=== PATIENT | female | born 1965 | race Caucasian/White ===

== ENCOUNTER 2019-02-09 15:32 | Emergency (ER) | payer BC ==
--- NOTE | 2019-02-09 15:43 | EDM.PDOC ---
ED HPI GENERAL MEDICAL PROBLEM - General Stated Complaint: WOUND BLEEDING Time Seen by Provider: 02/09/19 15:32 Source of Information: Reports: Patient, Family History Limitations: Reports: No Limitations - History of Present Illness INITIAL COMMENTS - FREE TEXT/NARRATIVE: 53 y.o.w.f with ESRD came with her family to the ed after a procedure, done at [facility] in order to open up the AV shunt at her left arm, which may be used for Hemodialysis. The procedure was not successful. Pt came to the ED because the wound was bleeding. There was no active bleed. Pt denies any other symptosm like SOB, CP, no N/V/D no dizziness. BP 102/76 Pulse 82 Temp 36.8 RR 18 Pulse ox 100% (vitals checked on D/C!) Onset Date: 02/09/19 Onset Time: 15:10 Duration: Hour(s): Location: Reports: Upper Extremity, Left Quality: Reports: Dull Severity: Moderate Improves with: Reports: Rest Worsens with: Reports: Movement Context: Reports: Trauma (AV shunt) Associated Symptoms: Reports: No Other Symptoms - Related Data Allergies Allergy/AdvReac Type Severity Reaction Status Date / Time fentanyl Allergy Other Verified 02/09/19 16:50 Sulfa (Sulfonamide Allergy Other Verified 02/09/19 16:50 Antibiotics) ED ROS GENERAL - Review of Systems Review Of Systems: See Below Constitutional: Reports: No Symptoms HEENT: Reports: No Symptoms Respiratory: Reports: No Symptoms Cardiovascular: Reports: No Symptoms Endocrine: Reports: No Symptoms GI/Abdominal: Reports: No Symptoms : Reports: No Symptoms Musculoskeletal: Reports: No Symptoms Skin: Reports: Wound (left upper arm S/P surgical procedure. ) Neurological: Reports: No Symptoms Psychiatric: Reports: No Symptoms Hematologic/Lymphatic: Reports: No Symptoms Immunologic: Reports: No Symptoms ED EXAM, SKIN/RASH Exam: See Below Exam Limited By: No Limitations General Appearance: Alert, WD/WN, Mild Distress Eye Exam: Bilateral Eye: Nystagmus Ears: Normal External Exam Nose: Normal Inspection Throat/Mouth: Normal Lips, Normal Voice, No Airway Compromise Head: Atraumatic, Normocephalic Neck: Normal Inspection, Supple, Non-Tender Respiratory/Chest: No Respiratory Distress, Lungs Clear Cardiovascular: Normal Peripheral Pulses, Regular Rate, Rhythm, No Edema Peripheral Pulses: 1+: Brachial (L) GI/Abdominal: Normal Bowel Sounds, Soft, Non-Tender, No Organomegaly, No Abnormal Bruit (Female) Exam: Deferred Rectal (Female) Exam: Deferred Back Exam: Normal Inspection, Full Range of Motion Extremities: Normal Range of Motion, No Pedal Edema, Normal Capillary Refill Neurological: Alert, Oriented, CN II-XII Intact, Normal Cognition, Normal Gait Psychiatric: Normal Affect, Normal Mood Skin: Warm, Dry, Other (bleding punctured wound left upper arm) Location, Skin: Upper Extremity, Left Associated features: Warmth Lymphatic: No Adenopathy Course - Vital Signs Text/Narrative:: 53 y.o.w.f with ESRD came with her family to the ed after a procedure, done at [facility] in order to open up the AV shunt at her left arm, which may be used for Hemodialysis. The procedure was not successful. Pt came to the ED because the wound was bleeding. There was no active bleed. Pt denies any other symptosm like SOB, CP, no N/V/D no dizziness. BP 102/76 Pulse 82 Temp 36.8 RR 18 Pulse ox 100% (vitals checked on D/C! by MD) PE: WNWD W F with a H./O Low BP Labs/Imaging: Jl this am at [facility] Impression: Bleeding from AV shunt left arm, H/O Hypotension Tx: Wound care 3.42 pm Consultation:Dr. Padilla,CV surgeon, [facility]: Apply pressure, wound care, F/u with surgeon Reexam: Pt was ambulating fine, no dizziness/lightheadedness no SOB Plan: D/C with instructions Departure - Departure Time of Disposition: 16:33 Disposition: Home, Self-Care 01 Condition: Good Clinical Impression: Encounter for wound care - Discharge Information Referrals: Marielle Gomes MD [Primary Care Provider] - Additional Instructions: Please f/u with your PMD wound care, please see your surgeon for for shunt placement, please come back if your symptoms get worse acutely
== END 2019-02-09 17:15 | disposition home or self-care (01) ==
LOC: FB.ED 15:32
DX: T82.838A Hemorrhage due to vascular prosthetic devices, implants and grafts, initial encounter (principal); N18.6 End stage renal disease; Z88.5 Allergy status to narcotic agent; Z88.2 Allergy status to sulfonamides
CPT/HCPCS: 99283

== ENCOUNTER 2019-05-27 17:54 | Emergency (ER) | payer BC ==
[2019-05-27] MEDS ORDERED: Sodium Chloride 0.9% 1,000 ML IV ONE (18:00)
[2019-05-27] MEDS ORDERED: Sodium Chloride 0.9% 10 ML Syringe FLUSH PRN (18:00)
[2019-05-27] MEDS ORDERED: Norepinephrine 4 MG in Dextrose 5% in Water 246 ML IV SCH ×2 (18:30)
--- NOTE | 2019-05-27 18:42 | EDM.PDOC ---
ED HPI GENERAL MEDICAL PROBLEM - General Chief Complaint: Syncope Stated Complaint: PASSED OUT Time Seen by Provider: 05/27/19 18:37 Source of Information: Reports: Patient, EMS History Limitations: Reports: No Limitations - History of Present Illness INITIAL COMMENTS - FREE TEXT/NARRATIVE: Patient had a witnessed syncopal episode [employer]. She is s/p LUE AV fistula placement, tunneled dialysis catheter placement, and removal of peritoneal catheter today at [facility]. Patient complains of lightheadedness and nausea. Denies chest pain or shortness of breath. Per Dr. Gomes (PMD), patient's BP is normally low, and SBP 70 is not uncommon. Onset: Today Duration: Hour(s): (1) - Related Data Allergies Allergy/AdvReac Type Severity Reaction Status Date / Time fentanyl Allergy Other Verified 05/27/19 18:53 Sulfa (Sulfonamide Allergy Other Verified 05/27/19 18:53 Antibiotics) Past Medical History HEENT History: Reports: Impaired Vision Cardiovascular History: Reports: Heart Murmur, [place], Other (See Below) Other Cardiovascular History: hypotension, tachycardia, SVT Genitourinary History: Reports: Chronic Renal Insuffiency, Dialysis, Dialysis, Peritoneal Endocrine/Metabolic History: Reports: Diabetes, Type II, Obesity/BMI 30+ - Past Surgical History HEENT Surgical History: Reports: Oral Surgery Cardiovascular Surgical History: Reports: Other (See Below) Other Cardiovascular Surgeries/Procedures: ablation GI Surgical History: Reports: Bariatric Procedure Social & Family History - Family History Family Medical History: Noncontributory - Caffeine Use Caffeine Use: Reports: None Caffeine Use Comment: Pt used caffeine in the past, not so much anymore - Alcohol Use Alcohol Use History: No ED ROS GENERAL - Review of Systems Review Of Systems: Comprehensive ROS is negative, except as noted in HPI. - Physical Exam Exam: See Below Exam Limited By: No Limitations General Appearance: Alert, WD/WN, No Apparent Distress Eye Exam: Bilateral Eye: EOMI, PERRL Throat/Mouth: No Airway Compromise Head Exam: Atraumatic, Normocephalic Neck: Other (mild posterior neck tenderness) Respiratory/Chest: No Respiratory Distress, Lungs Clear Cardiovascular: Normal Peripheral Pulses, Regular Rate, Rhythm, No Murmur GI/Abdominal: Normal Bowel Sounds, Tender (mild generalized) Neuro Exam (Abbreviated): Alert, Normal Cognition, No Motor/Sensory Deficits, Other (GCS=15, NIHSS score=0) Back Exam: No: Vertebral Tenderness Extremities: Normal Range of Motion Skin Exam: Warm, Dry, No Rash EKG INTERPRETATION EKG Date: 05/27/19 Time: 20:29 Rhythm: NSR Rate (Beats/Min): 76 [place]: Normal P-Wave: Present QRS: Normal ST-T: Other (Nonspecific T inversion lateral leads) Course - Vital Signs Last Recorded V/S: Last Vital Signs Temp 36.2 C 05/27/19 17:54 Pulse 117 H 05/27/19 17:54 Resp 18 05/27/19 17:54 BP 119/78 05/27/19 17:54 Pulse Ox 100 05/27/19 17:54 - Orders/Labs/Meds Orders: Active Orders 24 hr Category Date Time Status Accu Check [Blood Glucose Check, Bedside] [RC] ONETIME Care 05/27/19 17:58 Active EKG Documentation Completion [RC] ASDIRECTED Care 05/27/19 17:59 Active Urinary Catheter Assessment [RC] QSHIFT Care 05/27/19 18:05 Inactive Abdomen Pelvis wo Cont [CT] Stat Exams 05/27/19 18:26 Taken CXR [Chest 1V Frontal] [CR] Stat Exams 05/27/19 18:01 Taken Cervical Spine wo Cont [CT] Stat Exams 05/27/19 18:02 Taken Head wo Cont [CT] Stat Exams 05/27/19 18:02 Taken CULTURE BLOOD [BC] Urgent Lab 05/27/19 17:59 Ordered CULTURE BLOOD [BC] Urgent Lab 05/27/19 17:59 Ordered DRUG SCREEN, URINE ALERE [URCHEM] Stat Lab 05/27/19 18:04 Ordered LACTIC ACID [CHEM] Stat Lab 05/27/19 17:58 Ordered TYPE AND SCREEN [BBK] Stat Lab 05/27/19 17:58 Ordered UA W/MICROSCOPIC [URIN] Stat Lab 05/27/19 17:58 Ordered Sodium Chloride 0.9% [Normal Saline] 1,000 ml Med 05/27/19 20:00 Active IV ASDIRECTED Sodium Chloride 0.9% [Saline Flush] Med 05/27/19 18:00 Active 10 ml FLUSH ASDIRECTED PRN Blood Culture x2 Reflex Set [OM.PC] Urgent Oth 05/27/19 17:58 Ordered Saline Lock Insert [OM.PC] Routine Oth 05/27/19 18:00 Ordered EKG 12 Lead [EK] Stat Ther 05/27/19 17:58 Ordered Medication Orders Sodium Chloride (Normal Saline) 1,000 mls @ 100 mls/hr IV ASDIRECTED KATYA Sodium Chloride (Saline Flush) 10 ml FLUSH ASDIRECTED PRN PRN Reason: Keep Vein Open Labs: Laboratory Tests 05/27/19 05/27/19 05/27/19 Range/Units 18:00 19:45 19:45 WBC 11.4 (4.5-12.0) X10-3/uL RBC 3.64 (3.23-5.20) x10(6)uL Hgb 9.3 L (11.5-15.5) g/dL Hct 30.4 (30.0-51.3) % MCV 83.4 (80-96) fL MCH 25.6 L (27.7-33.6) pg MCHC 30.7 L (32.2-35.4) g/dL RDW 14.5 (11.5-15.5) % Plt Count 442 H (125-369) X10(3)uL MPV 8.4 (7.4-10.4) fL Neut % (Auto) 77.3 (46-82) % Lymph % (Auto) 18.9 (13-37) % [place] % (Auto) 1.5 L (4-12) % Eos % (Auto) 0 L (1.0-5.0) % Baso % (Auto) 2 (0-2) % Neut # (Auto) 8.9 H (1.6-8.3) # Lymph # (Auto) 2.1 (0.6-5.0) # [place] # (Auto) 0.2 (0.0-1.3) # Eos # (Auto) 0.0 (0.0-0.8) # Baso # (Auto) 0.2 (0.0-0.2) # PT 14.2 H (8.7-11.1) INR 1.47 H (0.89-1.13) APTT 28.8 (24.4-33.2) SECONDS Sodium 143 (135-145) mmol/L Potassium 5.8 H (3.5-5.3) mmol/L Chloride 104 (100-110) mmol/L Carbon Dioxide 19 L (21-32) mmol/L BUN 51 H (7-18) mg/dL Creatinine 9.6 H* (0.55-1.02) mg/dL Est Cr Clr Drug Dosing 4.81 mL/min Estimated GFR (MDRD) 4 L (>60) BUN/Creatinine Ratio 5.3 L (9-20) Glucose 162 H (80-116) mg/dL Calcium 7.7 L (8.6-10.2) mg/dL Total Bilirubin 0.3 (0.1-1.3) mg/dL AST 30 H (5-25) IU/L ALT 35 (12-36) U/L Alkaline Phosphatase 137 H (56-112) IU/L Troponin I (<0.017-0.056) ng/mL Total Protein 4.7 L (6.0-8.0) g/dL Albumin 1.5 L* (3.5-5.2) g/dL Globulin 3.2 g/dL Albumin/Globulin Ratio 0.5 Ethyl Alcohol (<0.03) % 05/27/19 05/27/19 Range/Units 19:45 19:45 WBC (4.5-12.0) X10-3/uL RBC (3.23-5.20) x10(6)uL Hgb (11.5-15.5) g/dL Hct (30.0-51.3) % MCV (80-96) fL MCH (27.7-33.6) pg MCHC (32.2-35.4) g/dL RDW (11.5-15.5) % Plt Count (125-369) X10(3)uL MPV (7.4-10.4) fL Neut % (Auto) (46-82) % Lymph % (Auto) (13-37) % [place] % (Auto) (4-12) % Eos % (Auto) (1.0-5.0) % Baso % (Auto) (0-2) % Neut # (Auto) (1.6-8.3) # Lymph # (Auto) (0.6-5.0) # [place] # (Auto) (0.0-1.3) # Eos # (Auto) (0.0-0.8) # Baso # (Auto) (0.0-0.2) # PT (8.7-11.1) INR (0.89-1.13) APTT (24.4-33.2) SECONDS Sodium (135-145) mmol/L Potassium (3.5-5.3) mmol/L Chloride (100-110) mmol/L Carbon Dioxide (21-32) mmol/L BUN (7-18) mg/dL Creatinine (0.55-1.02) mg/dL Est Cr Clr Drug Dosing mL/min Estimated GFR (MDRD) (>60) BUN/Creatinine Ratio (9-20) Glucose (80-116) mg/dL Calcium (8.6-10.2) mg/dL Total Bilirubin (0.1-1.3) mg/dL AST (5-25) IU/L ALT (12-36) U/L Alkaline Phosphatase (56-112) IU/L Troponin I 0.110 H* (<0.017-0.056) ng/mL Total Protein (6.0-8.0) g/dL Albumin (3.5-5.2) g/dL Globulin g/dL Albumin/Globulin Ratio Ethyl Alcohol < 0.03 (<0.03) % Meds: Medications Generic Name Dose Route Start Last Admin Trade Name Freq PRN Reason Stop Dose Admin Sodium Chloride 1,000 mls @ 100 mls/hr 05/27/19 20:00 Normal Saline IV ASDIRECTED KATYA Sodium Chloride 10 ml 05/27/19 18:00 Saline Flush FLUSH ASDIRECTED PRN Keep Vein Open Discontinued Medications Generic Name Dose Route Start Last Admin Trade Name Freq PRN Reason Stop Dose Admin Sodium Chloride 1,000 mls @ 999 mls/hr 05/27/19 18:00 05/27/19 18:25 Normal Saline IV 05/27/19 19:00 999 mls/hr .BOLUS ONE Infusion Norepinephrine Bitartrate 4 mg 250 mls @ 7.5 mls/hr 05/27/19 18:30 / Dextrose/Water IV TITRATE KATYA Protocol 2 MCG/MIN Midodrine 12.5 mg 05/27/19 19:58 05/27/19 20:06 Midodrine PO 05/27/19 19:59 12.5 mg ONETIME ONE Administration - Radiology Interpretation Free Text/Narrative:: CT Abd/Pelvis w/o contrast: Dilatation of the gallbladder with multiple foci of air within the gallbladder and biliary tree. The source of the air is uncertain. Trace ascites. Multiple inflammatory injection sites in the left anterior abdominal wall including a 2.4 cm hematoma with fluid level. CXR: Lungs clear. Cardiomediastinal silhouette is normal. CT Head w/o contrast: No acute process. CT C-spine: No fracture or malalignment. - Re-Assessments/Exams Free Text/Narrative Re-Assessment/Exam: 05/27/19 20:33 Patient agreed to imaging after speaking with Dr. Gomes. She refuses further IV access. BP on arrival was 119/78, then dropped to 58/20. This improved to 76/52 after 1L NS. Patient alert, GCS = 15. Departure - Departure Time of Disposition: 20:35 Disposition: DC/Tfer to Acute Hospital 02 Condition: Fair Clinical Impression: ESRD (end stage renal disease) Syncope Qualifiers: Syncope type: unspecified Qualified Code(s): R55 - Syncope and collapse Hypotension Qualifiers: Hypotension type: orthostatic hypotension Qualified Code(s): I95.1 - Orthostatic hypotension Abdominal pain Qualifiers: Abdominal location: generalized Qualified Code(s): R10.84 - Generalized abdominal pain - Discharge Information *PRESCRIPTION DRUG MONITORING PROGRAM REVIEWED*: No *COPY OF PRESCRIPTION DRUG MONITORING REPORT IN PATIENT [place]: Not Applicable Referrals: Marielle Gomes MD [Primary Care Provider] - Forms: ED Department Discharge Sepsis Event Note - Focused Exam Vital Signs: Vital Signs Temp Pulse Resp BP Pulse Ox 05/27/19 17:54 36.2 C 117 H 18 119/78 100 Date Exam was Performed: 05/27/19 Time Exam was Performed: 20:42 - My Orders Last 24 Hours: My Active Orders 05/27/19 17:58 Accu Check [Blood Glucose Check, Bedside] [RC] ONETIME LACTIC ACID [CHEM] Stat TYPE AND SCREEN [BBK] Stat UA W/MICROSCOPIC [URIN] Stat Blood Culture x2 Reflex Set [OM.PC] Urgent EKG 12 Lead [EK] Stat 05/27/19 17:59 EKG Documentation Completion [RC] ASDIRECTED CULTURE BLOOD [BC] Urgent CULTURE BLOOD [BC] Urgent 05/27/19 18:00 Sodium Chloride 0.9% [Saline Flush] 10 ml FLUSH ASDIRECTED PRN Saline Lock Insert [OM.PC] Routine 05/27/19 18:01 CXR [Chest 1V Frontal] [CR] Stat 05/27/19 18:02 Cervical Spine wo Cont [CT] Stat Head wo Cont [CT] Stat 05/27/19 18:04 DRUG SCREEN, URINE ALERE [URCHEM] Stat 05/27/19 18:05 Urinary Catheter Assessment [RC] QSHIFT 05/27/19 18:26 Abdomen Pelvis wo Cont [CT] Stat 05/27/19 20:00 Sodium Chloride 0.9% [Normal Saline] 1,000 ml IV ASDIRECTED - Assessment/Plan Last 24 Hours: My Active Orders 05/27/19 17:58 Accu Check [Blood Glucose Check, Bedside] [RC] ONETIME LACTIC ACID [CHEM] Stat TYPE AND SCREEN [BBK] Stat UA W/MICROSCOPIC [URIN] Stat Blood Culture x2 Reflex Set [OM.PC] Urgent EKG 12 Lead [EK] Stat 05/27/19 17:59 EKG Documentation Completion [RC] ASDIRECTED CULTURE BLOOD [BC] Urgent CULTURE BLOOD [BC] Urgent 05/27/19 18:00 Sodium Chloride 0.9% [Saline Flush] 10 ml FLUSH ASDIRECTED PRN Saline Lock Insert [OM.PC] Routine 05/27/19 18:01 CXR [Chest 1V Frontal] [CR] Stat 05/27/19 18:02 Cervical Spine wo Cont [CT] Stat Head wo Cont [CT] Stat 05/27/19 18:04 DRUG SCREEN, URINE ALERE [URCHEM] Stat 05/27/19 18:05 Urinary Catheter Assessment [RC] QSHIFT 05/27/19 18:26 Abdomen Pelvis wo Cont [CT] Stat 05/27/19 20:00 Sodium Chloride 0.9% [Normal Saline] 1,000 ml IV ASDIRECTED
[2019-05-27] MEDS ORDERED: Midodrine 5 MG Tab PO ONE (19:58)
[2019-05-27] MEDS ORDERED: Sodium Chloride 0.9% 1,000 ML IV SCH (20:00)
== END 2019-05-27 21:05 ==
LOC: FB.ED 17:54
DX: I95.1 Orthostatic hypotension (principal); E11.22 Type 2 diabetes mellitus with diabetic chronic kidney disease; N18.6 End stage renal disease; I25.2 Old myocardial infarction; E66.9 Obesity, unspecified; Z88.2 Allergy status to sulfonamides; Z88.8 Allergy status to other drugs, medicaments and biological substances; Z98.890 Other specified postprocedural states; Z98.84 Bariatric surgery status
CPT/HCPCS: 36415; 70450; 71045; 72125; 74176; 80053; 80320; 84484; 85025; 85610; 85730; 93005; 96360; 96361; 99285; A9270; J7030; G0480